=== PATIENT | female | born 1930 | race Caucasian/White ===

== ENCOUNTER 2018-04-14 12:40 | Emergency (ER) | payer OTHER ==
[~2018-04-14] VITALS: Ht 165.1 cm; Wt 83.0 kg
[~2018-04-14 12:40] MED LIST: CELE200C PO; METO25TE2 PO; MEX2.5 PO; OMEP40EC1 PO; ORE25 PO; PROP150T28 PO; SIMV20TA1 PO; WARF3TAB PO; [UNRECOGNIZED DRUG - CODE] PO
[2018-04-14 12:45] VITALS: BP 135/66
[2018-04-14 14:00] VITALS: BP 132/62
== END 2018-04-14 14:00 | disposition home or self-care (01) ==
LOC: MED 12:40
DX: S63.502A Unspecified sprain of left wrist, initial encounter (principal); I10 Essential (primary) hypertension; Z88.6 Allergy status to analgesic agent; Z88.5 Allergy status to narcotic agent; Z88.8 Allergy status to other drugs, medicaments and biological substances; Z79.899 Other long term (current) drug therapy; Z86.73 Personal history of transient ischemic attack (TIA), and cerebral infarction without residual deficits; W19.XXXA Unspecified fall, initial encounter; Y93.89 Activity, other specified; Y92.89 Other specified places as the place of occurrence of the external cause; Y99.8 Other external cause status
CPT/HCPCS: 73110; 99284